=== PATIENT | female | born 1995 | race Two or more races ===

== ENCOUNTER 2017-01-13 18:09 | Observation (INO) | payer BC, MEDICAID ==
[~2017-01-13 18:09] MED LIST: FLEXERIL 10MG PO; NORCO 5/325 TAB1 TAB PO; PROVENTIL HFA6.7 G1 IH; ZITHROMAX250 M1 PO
[2017-01-13 18:49] LABS: URINE BILIRUBIN NEGATIVE (NEG); URINE BLOOD NEGATIVE (NEG); URINE GLUCOSE (UA) LARGE (NEG); URINE KETONE MODERATE (NEG); URINE LEUKOCYTE ESTERASE NEGATIVE (NEG); URINE NITRITE POSITIVE (NEG); URINE PROTEIN MODERATE (NEG)
[2017-01-13 18:51] LABS: URINE APPEARANCE CLOUDY; URINE COLOR YELLOW
[2017-01-13 19:03] LABS: URINE AMORPHOUS 1+; URINE BACTERIA 1+; URINE RBC 0 /[HPF] (0-5)
[2017-01-13] MEDS ORDERED: PRENATAL VITAM1 EA11 PO (19:52)
[2017-01-13] MEDS ORDERED: MACROBID 100 M100 M1 PO (19:52)
[2017-01-13] MEDS ORDERED: PEPCID40 M1 PO (19:53)
[2017-01-13] MEDS ORDERED: IRON160 M1 PO (19:53)
== END 2017-01-13 20:12 ==
LOC: LDR 18:09
PROVIDERS: Obstetrics & Gynecology; ADMIT Obstetrics & Gynecology
DX: Z03.71 Encounter for suspected problem with amniotic cavity and membrane ruled out (principal); Z3A.29 29 weeks gestation of pregnancy; Z79.2 Long term (current) use of antibiotics; Z79.899 Other long term (current) drug therapy; Z88.0 Allergy status to penicillin; Z88.5 Allergy status to narcotic agent